=== PATIENT | male | born 1945 ===

== ENCOUNTER 2017-02-09 07:43 | Day surgery (SDC) | payer MEDICARE ==
[2017-02-05 09:25] VITALS: BMI 26.9
[2017-02-09 08:15] VITALS: RESP 18
[2017-02-09] MEDS ORDERED: Sodium Chloride 0.9% 20 ML IV ONE (08:35)
[2017-02-09] MEDS ORDERED: EPINEPHrine 1 mg/ml (1:1000) Inj ONE (08:35)
[2017-02-09] MEDS ORDERED: Lidocaine 1% Inj (20ml) ONE (08:36)
[2017-02-09] MEDS ORDERED: Lidocaine 2% Jelly (5 ml) TOP ONE (08:37)
--- NOTE | 2017-02-09 09:17 | CP.SDSHP ---
Same Day Surgery H & P - History Proposed Procedure: flexible bronchoscopy Pre-Op Diagnosis: solitary pulmonary nodule LLL - Allergies Allergies: Allergies aspirin Allergy (Verified 02/09/17 08:22) RASH ibuprofen [From Motrin] Allergy (Verified 02/09/17 08:23) RASH iodine Allergy (Verified 02/05/17 08:44) RASH naproxen [From Aleve] Allergy (Verified 02/09/17 08:23) RASH shellfish derived Allergy (Verified 02/05/17 10:09) RASH - Physical Exam Vital Signs: Vital Signs 02/09/17 02/09/17 08:11 08:14 Temperature 97.7 F Pulse Rate 84 84 Respiratory 18 Rate Blood Pressure 138/84 O2 Sat by Pulse 97 Oximetry Mental Status: Alert & Oriented x3 Neuro: WNL Heart: WNL Lungs: WNL GI: WNL - Impression Impression: solitary pulmonary nodule Pt. Evaluated Today:Candidate for Anesthesia & Procedure: Yes - Date & Time Date: 02/09/17 Time: :17 Short Stay Discharge - Short Stay Discharge Admitting Diagnosis/Reason for Visit: J91.1 Disposition: HOME/ ROUTINE Referrals: José Miguel Marcelino MD [Primary Care Provider] -
[2017-02-09] MEDS ORDERED: Propofol 10 mg/ml Inj (20 ML) ONE (09:33)
[2017-02-09] MEDS ORDERED: Midazolam 2 MG/2 ML VIAL ONE (09:33)
[2017-02-09] MEDS ORDERED: Lidocaine 2% MPF (5 ml) Inj ONE (09:33)
[2017-02-09] MEDS ORDERED: Lactated Ringer's 1,000 ML IV SCH (10:45)
[2017-02-09] MEDS ORDERED: Lactated Ringer's 1,000 ML IV ONE (11:10)
--- NOTE | 2017-02-09 11:56 | RAD ---
HISTORY: PACU post bronchoscopy . Technique: Single view portable semi erect @ 10:58 COMPARISON: 02/05/2017. FINDINGS: LUNGS: No active pulmonary disease. PLEURA: No significant pleural effusion identified, no pneumothorax apparent. CARDIOVASCULAR: No radiographic findings to suggest acute or significant cardiovascular disease. OSSEOUS STRUCTURES: No significant abnormalities. VISUALIZED UPPER ABDOMEN: Normal. OTHER FINDINGS: None. IMPRESSION: No active disease. No significant interval change compared to the prior examination(s).
[2017-02-09 12:29] VITALS: BP 129/83; PULSE 76; TEMP 98.1; O2SAT 99
--- NOTE | 2017-02-09 12:54 | CP.SDSHP ---
Same Day Surgery H & P - Allergies Allergies: Allergies aspirin Allergy (Verified 02/09/17 08:22) RASH ibuprofen [From Motrin] Allergy (Verified 02/09/17 08:23) RASH iodine Allergy (Verified 02/05/17 08:44) RASH naproxen [From Aleve] Allergy (Verified 02/09/17 08:23) RASH shellfish derived Allergy (Verified 02/05/17 10:09) RASH - Physical Exam Vital Signs: Vital Signs 02/09/17 02/09/17 02/09/17 08:11 08:14 10:30 Temperature 97.7 F 96.8 F L Pulse Rate 84 84 91 H Respiratory 18 18 Rate Blood Pressure 138/84 96/54 L O2 Sat by Pulse 97 99 Oximetry 02/09/17 02/09/17 02/09/17 10:45 11:00 11:15 Temperature 97.2 F L Pulse Rate 82 78 76 Respiratory 18 18 18 Rate Blood Pressure 99/52 L 93/60 L 93/60 L O2 Sat by Pulse 99 100 100 Oximetry 02/09/17 02/09/17 02/09/17 11:30 11:45 12:00 Temperature Pulse Rate 80 79 82 Respiratory 18 18 18 Rate Blood Pressure 110/70 123/85 119/52 L O2 Sat by Pulse 100 100 100 Oximetry 02/09/17 02/09/17 02/09/17 12:15 12:20 12:29 Temperature 97.6 F 98.1 F Pulse Rate 81 76 Respiratory 18 18 Rate Blood Pressure 127/78 129/83 O2 Sat by Pulse 100 99 99 Oximetry Short Stay Discharge - Short Stay Discharge Admitting Diagnosis/Reason for Visit: J91.1 Disposition: HOME/ ROUTINE Referrals: José Miguel Marcelino MD [Primary Care Provider] - Progress Note/Discharge Note with Instructions: Stable post bronchoscopy. Had some mild transient hemoptysis post bronchoscopy in PACU. Post biopsy chest x-ray does NOT show any infiltrate or pneumothorax. Tolerated oral intake. For discharge with follow up by phone next week.
== END 2017-02-09 13:05 | disposition home or self-care (01) ==
LOC: H.OPSURG 07:43
PROVIDERS: ATTEND Internal Medicine Pulmonary Disease
DX: R91.1 Solitary pulmonary nodule (principal)
CPT/HCPCS: 31623; 71010; 87015; 87070; 87101; 87116; 87181; 87206; 88104; 88305; J0171; J2250; J2704; J7120

== ENCOUNTER 2017-03-20 07:51 | Day surgery (SDC) | payer MEDICARE ==
[2017-03-20 08:35] VITALS: BMI 25.3
[2017-03-20 09:04] LABS: HEMATOCRIT 42.1 % (35.0-51.0); MEAN CORPUSCULAR HEMOGLOBIN 29.3 pg (27.0-31.0); MEAN CORPUSCULAR HGB CONC 32.9 g/dL (33.0-37.0); RED CELL DISTRIBUTION WIDTH 14.2 % (11.5-14.5); WHITE BLOOD COUNT 8.6 K/uL (4.8-10.8)
[2017-03-20 09:17] LABS: PARTIAL THROMBOPLASTIN TIME 36.3 Seconds (25.6-37.1)
[2017-03-20 09:22] LABS: BLOOD UREA NITROGEN 10 mg/dl (9-20); CALCIUM 8.5 mg/dL (8.4-10.2); CARBON DIOXIDE 27 mmol/L (22-30); CHLORIDE 104 mmol/L (98-107); GFR AFRICAN-AMERICAN > 60; GLUCOSE,RANDOM 94 mg/dL (75-110); POTASSIUM 3.2 MMOL/L (3.6-5.0); SODIUM 144 mmol/l (132-148)
[2017-03-20] MEDS ORDERED: Lidocaine 1% Inj (20ml) ONE (09:53)
[2017-03-20] MEDS ORDERED: Midazolam 2 MG/2 ML VIAL ONE (10:11)
[2017-03-20] MEDS ORDERED: Lactated Ringer's 1,000 ML IV SCH (11:30)
--- NOTE | 2017-03-20 12:14 | CP.PCM.HP ---
History of Present Illness - History of Present Illness History of Present Illness: 71 yo male with FDG avid left upper lobe lobulated nodule presents for CT guided core biopsy. Review of Systems - Review of Systems All systems: reviewed and no additional remarkable complaints except Past Patient History - Past Medical History & Family History Past Medical History?: Yes - Past Social History Smoking Status: Former Smoker - CARDIAC Hx Cardiac Disorders: Yes Hx Hypertension: Yes - PULMONARY Hx Respiratory Disorders: No - NEUROLOGICAL Hx Neurological Disorder: No - HEENT Hx HEENT Problems: Yes Hx Cataracts: Yes (BILATERAL) - RENAL Hx Chronic Kidney Disease: No - ENDOCRINE/METABOLIC Hx Endocrine Disorders: No - HEMATOLOGICAL/ONCOLOGICAL Hx Blood Disorders: No Hx Anemia: No Hx Blood Transfusions: No - INTEGUMENTARY Hx Dermatological Problems: No - MUSCULOSKELETAL/RHEUMATOLOGICAL Hx Musculoskeletal Disorders: Yes Hx Falls: No Hx Gout: Yes - GASTROINTESTINAL Hx Gastrointestinal Disorders: Yes Hx Gastritis: Yes - GENITOURINARY/GYNECOLOGICAL Other/Comment: ENLARGEMENT OF PROSTATE - PSYCHIATRIC Hx Emotional Abuse: No Hx Physical Abuse: No - SURGICAL HISTORY Hx Surgeries: Yes Other/Comment: LEFT KNEE REPAIR/PATELLA-1973;CATARACT BILATERA;LIPOMA ON THE NECK;RIGHT UPPER ARM SURGERY - ANESTHESIA Hx Anesthesia: Yes Hx Anesthesia Reactions: No Hx Malignant Hyperthermia: No Has any member of the family had a problem w/ anesthesia?: No Meds Allergies/Adverse Reactions: Allergies Allergy/AdvReac Type Severity Reaction Status Date / Time aspirin Allergy RASH Verified 02/09/17 08:22 ibuprofen [From Motrin] Allergy RASH Verified 02/09/17 08:23 iodine Allergy RASH Verified 02/05/17 08:44 naproxen [From Aleve] Allergy RASH Verified 02/09/17 08:23 shellfish derived Allergy RASH Verified 02/05/17 10:09 Results - Vital Signs Recent Vital Signs: Last Vital Signs Temp 97.3 F L 03/20/17 11:45 Pulse 67 03/20/17 11:45 Resp 17 03/20/17 11:45 BP 124/86 03/20/17 11:45 Pulse Ox 100 03/20/17 11:25 - Labs Result Diagrams: 03/20/17 08:57 03/20/17 08:57 Labs: Laboratory Results - last 24 hr 03/20/17 03/20/17 03/20/17 08:57 08:57 08:57 WBC 8.6 RBC 4.73 Hgb 13.9 Hct 42.1 MCV 89.0 MCH 29.3 MCHC 32.9 L RDW 14.2 Plt Count 251 PT 11.3 INR 1.0 APTT 36.3 Sodium 144 Potassium 3.2 L Chloride 104 Carbon Dioxide 27 Anion Gap 16 BUN 10 Creatinine 0.8 Est GFR ( Amer) > 60 Est GFR (Non-Af Amer) > 60 Random Glucose 94 Calcium 8.5
--- NOTE | 2017-03-20 12:22 | PCM.SURG1 ---
Surgeon's Initial Post Op Note - Surgeon's Notes Surgeon: Felipe Pang MD [employer] Teacher: none Type of Anesthesia: MAC, Local Pre-Operative Diagnosis: Lung Mass Operative Findings: lobulated left upper lobe nodule Post-Operative Diagnosis: same Operation Performed: CT guided left upper lobe core needle biopsy Specimen/Specimens Removed: 20g x 3 Estimated Blood Loss: EBL {In ML}: 0 Post-Op Condition: Good Date of Surgery/Procedure: 03/20/17 Time of Surgery/Procedure: 11:00
[2017-03-20 12:59] VITALS: RESP 18
[2017-03-20 14:20] VITALS: O2SAT 97
--- NOTE | 2017-03-20 14:34 | RAD ---
HISTORY: s/p left upper lobe biopsy COMPARISON: 02/09/2017 FINDINGS: LUNGS: The lungs are well inflated and clear. PLEURA: No significant pleural effusion identified, no pneumothorax apparent. CARDIOVASCULAR: The cardiomediastinal silhouette is stable. OSSEOUS STRUCTURES: No significant abnormalities. VISUALIZED UPPER ABDOMEN: Normal. OTHER FINDINGS: None. IMPRESSION: Status post left upper lobe biopsy, no definite evidence for pneumothorax.
[2017-03-20 15:35] VITALS: BP 132/76; PULSE 68; TEMP 98
--- NOTE | 2017-03-22 10:13 | CT ---
PROCEDURE: CT-GUIDED LEFT LUNG BIOPSY CLINICAL HISTORY: 71-year-old male with FDG avid left lower lobe nodule is referred to Interventional Radiology for percutaneous image-guided core needle biopsy. COMPARISON: PET/CT performed at [facility] on 01/11/2017. PROCEDURE: 1. Focused CT of the left hemithorax. 2. CT-guided core needle biopsy of the left lower lobe lung nodule. PRE-PROCEDURE FINDINGS: 1. Lobulated nodule in the superior segment of the left lower lobe. POST-PROCEDURE FINDINGS: 1. No evidence of post-procedural complication. INTERVENTIONAL RADIOLOGIST: Felipe Pang M.D. (the attending was present for the entire procedure) ANESTHESIA: Provided by the attending anesthesiologist. Sedation was supervised by the anesthesiology attending with the presence of independent radiology nursing monitoring. Physiological data monitoring was performed throughout the entire procedure. The patient's blood pressure, EKG and pulse oximetry were recorded. The patient tolerated the procedure and sedation without untoward reactions. The intra-procedural sedation time was 40 minutes. MEDICATIONS: Lidocaine 1% for local subcutaneous analgesia. COMPLICATIONS: None. PROCEDURE DESCRIPTION AND FINDINGS: The risks, benefits, alternatives and possible complications of the procedure were fully discussed; all questions were answered and informed consent was obtained. The patient was brought into the interventional suite and a pre-procedure 'time-out' was performed. The patient was placed on the CT table in the prone position. The lesion was localized under CT-guidance and a catrina was made on the skin site overlying the lesion. The left upper back was prepped and draped in the usual sterile fashion. Maximum sterile barrier precautions were maintained throughout the entire procedure. Preliminary focused CT images of the left hemithorax again demonstrate lobulated nodule in the superior segment of the left lower lobe corresponding to the FDG avid nodule seen on recent PET-CT. Following subcutaneous infiltration of lidocaine 1% for local analgesia, under CT-guidance, a 19-gauge trocar needle was advanced into theleft lower lobe nodule. The inner stylet was carefully removed. A 20-gauge biopsy device was coaxially loaded into the introducer needle and a total of 3 core needle biopsies were obtained. The biopsy device and trocar needle were removed. Adequate hemostasis was achieved utilizing manual compression. A sterile adhesive dressing was applied over the puncture site. Post-procedure imaging demonstrated no complications. The patient tolerated the procedure well without immediate post-procedure complications and was transferred to the interventional radiology recovery area in stable condition. IMPRESSION: Successful CT-guided core needle biopsy of the previously described FDG avid left lower lobe nodule. A total of 3 samples were obtained.
== END 2017-03-20 15:30 | disposition hospice, home (50) ==
LOC: H.OPSURG 07:51
PROVIDERS: ATTEND Family Medicine
DX: R93.1 Abnormal findings on diagnostic imaging of heart and coronary circulation (principal); I10 Essential (primary) hypertension
CPT/HCPCS: 32405; 36415; 71010; 77012; 80048; 85027; 85610; 85730; 88305; J3010